=== PATIENT | male | born 1985 | race Two or more races ===

== ENCOUNTER 2019-12-12 02:04 | Emergency (ER) | payer MEDICAID, OTHER ==
[~2019-12-12] VITALS: Ht 167.6 cm; Wt 87.1 kg
[2019-12-12] MEDS ORDERED: ONDANSETRON HCL 4 MG/2 ML VIAL IV ONE (02:30)
[2019-12-12] MEDS ORDERED: MORPHINE SULFATE 4 MG/ML SYR/VIAL IV ONE (02:30)
[2019-12-12] MEDS ORDERED: cloNIDine HCL 0.1 MG TAB PO ONE (02:30)
[2019-12-12 05:05] VITALS: BP 143/98
[2019-12-12] MEDS ORDERED: TETANUS-DIPTH-ACEL PERTUSSIS 0.5ML SYR Tdap IM ONE (05:30)
[2019-12-12] MEDS ORDERED: cefTRIAXone 1GM/50ML D5W 50 ML IV ONE (05:30)
== END 2019-12-12 05:53 | disposition home or self-care (01) ==
LOC: ER 02:06
DX: S51.032A Puncture wound without foreign body of left elbow, initial encounter (principal); X58.XXXA Exposure to other specified factors, initial encounter; Y93.89 Activity, other specified; Y92.89 Other specified places as the place of occurrence of the external cause; Y99.8 Other external cause status
CPT/HCPCS: 73200; 90471; 90715; 96365; 99285; J0696